=== PATIENT | male | born 1945 | race Caucasian/White ===

== ENCOUNTER 2016-04-29 08:56 | Outpatient (CLI) | payer MEDICARE, OTHER ==
[2016-04-29 18:14] LABS: #Eosinphils 0.1 thou/uL (0.0-0.7); #Lymphocytes 1.7 thou/uL (1.20-3.40); #Monocytes 0.5 thou/uL (0.11-0.59); #Neutrophils 3.1 thou/uL (1.40-6.50); %Basophils 0.9 % (0.0-1.0); %Monocytes 8.3 % (0.0-10.0); Hematocrit 41.2 % (42.0-52.0); Mean Platelet Volume 8.3 fL (7.4-10.4); Red Blood Cell (RBC) Count 4.23 mill/uL (4.70-6.10); White Blood Cell (WBC) Count 5.4 thou/uL (4.8-10.8)
== END 2016-04-29 08:57 | disposition home or self-care (01) ==
LOC: LABLEX 08:56
PROVIDERS: ATTEND Family Medicine
DX: D64.9 Anemia, unspecified (principal); D75.89 Other specified diseases of blood and blood-forming organs
CPT/HCPCS: 36415; 85025

== ENCOUNTER 2016-05-31 08:53 | Outpatient (CLI) | payer MEDICARE, OTHER ==
--- NOTE | 2016-05-31 13:33 | ULT ---
ABDOMINAL AORTA ULTRASOUND: Date: 05/31/16 Ultrasonography of the abdominal aorta was performed. The measurements are normal throughout with no sign of an abdominal aortic aneurysm. The transverse diameter of the aorta proximally was measured at 1.8 cm, 2.2 cm in the mid portion, and 1.7 cm distally. IMPRESSION: No evidence of aneurysm. POS: [facility]
== END 2016-05-31 08:54 | disposition home or self-care (01) ==
LOC: BURULT 08:53
PROVIDERS: ATTEND Family Medicine
DX: Z13.6 Encounter for screening for cardiovascular disorders (principal)
CPT/HCPCS: 76775

== ENCOUNTER 2018-04-24 11:01 | Outpatient (CLI) | payer MEDICARE, OTHER ==
--- NOTE | 2018-04-27 07:40 | RAD ---
CHEST TWO VIEWS: 04/24/18 The heart is normal in size. The lungs are clear and fully inflated. No infiltrate or effusion was se en. The trachea is midline. Faint calcification is seen in the aortic arch. IMPRESSION: Arteriosclerosis but no acute finding. POS: HOME
== END 2018-04-24 11:02 | disposition home or self-care (01) ==
LOC: BURRAD 11:01
PROVIDERS: ATTEND Nurse Practitioner
DX: M75.122 Complete rotator cuff tear or rupture of left shoulder, not specified as traumatic (principal); I70.0 Atherosclerosis of aorta
CPT/HCPCS: 71046